=== PATIENT | male | born 1950 | race Two or more races ===

== ENCOUNTER 2023-06-08 10:52 | Emergency (ER) | payer OTHER ==
[~2023-06-08] VITALS: Ht 177.8 cm; Wt 90.7 kg
[2023-06-08] MEDS ORDERED: ZESTRIL10 M1 PO (10:57)
== END 2023-06-08 12:51 | disposition home or self-care (01) ==
LOC: ER 10:52
DX: S50.12XA Contusion of left forearm, initial encounter (principal); W18.39XA Other fall on same level, initial encounter; Y93.59 Activity, other involving other sports and athletics played individually; Y92.89 Other specified places as the place of occurrence of the external cause